=== PATIENT | male | born 1970 | race African-American/Black ===

== ENCOUNTER 2021-01-21 05:57 | Inpatient (IN) ==
[2021-01-16 12:20] LABS: Bilirubin,Urine Negative (Negative); Blood, Urine Negative (Negative); Glucose,Urine (UA) Negative (Negative); Ketones,Urine Negative (Negative); Nitrite,Urine Negative (Negative); Protein,Urine Negative; RBC,Urine <1 /HPF (0-4); Urine Appearance CLEAR (Clear); Urine Color Straw (Yellow); Urine Specific Gravity 1.009 (1.001-1.035); Urine Urobilinogen < 2.0 EU/DL (0.2-1.0); WBC,Urine <1 /HPF (0-6)
[2021-01-16 12:25] LABS: Basophils # 0.1 10*3/uL (0.0-0.2); Basophils % 0.7 % (0.0-0.8); Eosinophils # 0.3 10*3/uL (0.0-0.87); Eosinophils % 3.2 % (0.00-10.9); Hematocrit 40.1 VOL% (42.0-52.0); Hemoglobin 13.5 GM/DL (14.0-18.0); Immature Granulocytes % 0.6 %; Immature Granulocytes Absolute 0.06 #; Lymphocytes # 1.4 10*3/uL (1.4-4.0); Lymphocytes % 13.7 % (21.2-54.2); Mean Corpuscular HGB Conc 33.7 GM/DL (32-36); Mean Corpuscular Volume 89.3 FL (87-102); Mean Platelet Volume 10.4 FL (9.6-12.0); Monocytes % 8.4 % (1.7-12.7); Neutrophils % 73.4 % (38.7-73.9); Platelet Count 369 T/CUMM (130-400); Red Blood Count 4.49 MC/CUMM (3.8-5.5); Red Cell Distribution Width 14.2 % (9.3-17.3); White Blood Count 9.9 T/CUMM (4-12)
[2021-01-16 12:46] LABS: INR 0.9; PT Patient Result 9.6 SECS (9.8-11.9); Partial Thromboplastin Time 31.2 SECS (23.9-33.8)
[2021-01-16 13:05] LABS: Calcium 9.2 MG/DL (8.5-10.1); Osmolality,Calculated 273.8 MOS/KG (273-304); Potassium 4.3 MMOL/L (3.5-5.1)
[~2021-01-21 05:57] MED LIST: LACTATED RINGERS 1,000 ML IV SCH
[2021-01-21] MEDS ORDERED: ACETAMINOPHEN 500 MG TABLET PO ONE (06:00)
[2021-01-21] MEDS ORDERED: GABAPENTIN 400 MG CAPSULE PO ONE (06:00)
[2021-01-21] MEDS ORDERED: FAMOTIDINE 20 MG TABLET PO ONE (06:00)
[2021-01-21] MEDS ORDERED: BACITRACIN OINT 0.9 GM PACK TOP ONE (06:13)
[2021-01-21] MEDS ORDERED: propofoL 200 MG/20 ML VIAL IV ONE (06:24)
[2021-01-21] MEDS ORDERED: LIDOCAINE 2% 5 ML VIAL ONE (06:25)
[2021-01-21] MEDS ORDERED: ONDANSETRON 4 MG/2 ML VIAL ONE (06:25)
[2021-01-21] MEDS ORDERED: ETOMIDATE 40 MG/20 ML VIAL IV ONE (06:25)
[2021-01-21] MEDS ORDERED: PHENYLEPHRINE 10 MG/1 ML VIAL IV ONE (06:26)
[2021-01-21] MEDS ORDERED: VANCOMYCIN INJ 1,000 MG in SODIUM CHLORIDE 0.9% 250 ML IV ONE ×2 (06:30→17:00)
[2021-01-21] MEDS ORDERED: ceFAZolin 2,000 MG in PREMIX 1 EACH IV ONE (06:30)
[2021-01-21] MEDS ORDERED: ceFAZolin 1,000 MG in SYRINGE 1 EACH IV ONE (06:30)
[2021-01-21] MEDS ORDERED: MIDAZOLAM 2 MG/2 ML VIAL ONE (06:31)
[2021-01-21] MEDS ORDERED: fentaNYL 100 MCG/2 ML VIAL ONE (06:31)
[2021-01-21] MEDS ORDERED: ROPIVACAINE 0.5% 30 ML VIAL ONE (06:33)
[2021-01-21] MEDS ORDERED: DEXAMETHASONE 4 MG/1 ML VIAL ONE ×2 (06:33→07:47)
[2021-01-21] MEDS ORDERED: LIDOCAINE 1% 5 ML VIAL ONE (06:33)
[2021-01-21] MEDS ORDERED: BUPIVACAINE SPINAL 0.75% 2 ML AMP SPINAL ONE (06:40)
[2021-01-21 06:59] LABS: Alanine Aminotransferase 30 U/L (16-61); Albumin 3.6 G/DL (3.4-5.0); Alkaline Phosphatase 70 U/L (45-117); Aspartate Amino Transferase 30 U/L (0-37); Bilirubin,Total < 0.39 MG/DL (0.2-1.0); Blood Urea Nitrogen 13 MG/DL (7-18); Calcium 8.6 MG/DL (8.5-10.1); Carbon Dioxide 23 MMOL/L (21-32); Estimated Glom Filtration Rate 95 ML/MIN; Glucose 147 MG/DL (74-106); Osmolality,Calculated 275.8 MOS/KG (273-304); Potassium 3.7 MMOL/L (3.5-5.1); Sodium 137 MMOL/L (136-145); Total Protein 7.9 G/DL (6.4-8.2)
[2021-01-21] MEDS ORDERED: TRANEXAMIC ACID 1,000 MG/10 ML VIAL ONE (07:56)
[2021-01-21] MEDS ORDERED: SODIUM CHLORIDE 0.9% 250 ML IV ONE (08:46)
[2021-01-21] MEDS ORDERED: SODIUM CHLORIDE 0.9% 100 ML IV ONE (08:46)
[2021-01-21] MEDS ORDERED: KETAMINE 500 MG/10 ML VIAL ONE (08:54)
[2021-01-21] MEDS ORDERED: MELATONIN 3 MG TABLET PO PRN (09:20)
[2021-01-21] MEDS ORDERED: MAGNESIUM HYDROXIDE SUSP 30 ML UDCUP PO PRN (09:21)
[2021-01-21 09:59] LABS: Bacteria,Urine Occasional /HPF (Few); Bilirubin,Urine Negative (Negative); Blood, Urine Negative (Negative); Glucose,Urine (UA) Negative (Negative); Ketones,Urine Negative (Negative); Mucus,Urine Occasional /LPF (Occasional); Nitrite,Urine Negative (Negative); Protein,Urine Negative; RBC,Urine 1 /HPF (0-4); Squamous Epithelial Cell,Urine Occasional /HPF (0-10); Urine Appearance CLEAR (Clear); Urine Color Straw (Yellow); Urine Specific Gravity 1.004 (1.001-1.035); Urine Urobilinogen < 2.0 EU/DL (0.2-1.0)
[2021-01-21] MEDS ORDERED: ONDANSETRON 4 MG/2 ML VIAL IV PRN ×2 (10:30→12:21)
[2021-01-21] MEDS: KETOROLAC 30 MG/1 ML VIAL IV SCH ×3 (10:30→21:58)
[2021-01-21] MEDS ORDERED: MORPHINE 4 MG/1 ML VIAL IV PRN ×2 (10:30)
[2021-01-21] MEDS: HYDROmorphone 2 MG/1 ML VIAL IV PRN ×4 (11:50→12:40)
[2021-01-21] MEDS ORDERED: HYDROmorphone 2 MG/1 ML VIAL ONE (11:51)
[2021-01-21] MEDS ORDERED: MORPHINE 10 MG/1 ML VIAL ONE (13:34)
[2021-01-21] MEDS ORDERED: hydrALAZINE 20 MG/1 ML VIAL IV PRN (14:38)
[2021-01-21] MEDS: BACLOFEN 20 MG TABLET PO SCH ×2 (15:40→21:58)
[2021-01-21] MEDS: LACTATED RINGERS 1,000 ML IV SCH (16:50)
[2021-01-21] MEDS ORDERED: ceFAZolin 2,000 MG in PREMIX 1 EACH IV SCH (17:30)
[2021-01-21] MEDS ORDERED: AMITRIPTYLINE 50 MG TABLET PO PRN (21:00)
[2021-01-21] MEDS ORDERED: PRAZOSIN 1 MG CAPSULE PO SCH (21:00)
[2021-01-21] MEDS: DOCUSATE SODIUM 100 MG CAPSULE PO SCH (21:57)
[2021-01-22] MEDS: LACTATED RINGERS 1,000 ML IV SCH ×2 (04:18→08:27)
[2021-01-22] MEDS: KETOROLAC 30 MG/1 ML VIAL IV SCH (04:19)
[2021-01-22] MEDS ORDERED: ceFAZolin 2,000 MG in PREMIX 1 EACH IV SCH (05:00)
[2021-01-22] MEDS ORDERED: FONDAPARINUX 2.5 MG/0.5 ML SYRINGE SUBCUT SCH (05:00)
[2021-01-22 05:46] LABS: Basophils % 0.2 % (0.0-0.8); Eosinophils % 0.1 % (0.00-10.9); Hematocrit 30.3 VOL% (42.0-52.0); Hemoglobin 10.2 GM/DL (14.0-18.0); Immature Granulocytes % 0.6 %; Immature Granulocytes Absolute 0.06 #; Lymphocytes # 0.9 10*3/uL (1.4-4.0); Lymphocytes % 8.9 % (21.2-54.2); Mean Corpuscular HGB Conc 33.7 GM/DL (32-36); Mean Corpuscular Volume 88.6 FL (87-102); Mean Platelet Volume 10.2 FL (9.6-12.0); Monocytes % 10.6 % (1.7-12.7); Neutrophils % 79.6 % (38.7-73.9); Platelet Count 284 T/CUMM (130-400); Red Blood Count 3.42 MC/CUMM (3.8-5.5); Red Cell Distribution Width 14.2 % (9.3-17.3); White Blood Count 9.9 T/CUMM (4-12)
[2021-01-22] MEDS ORDERED: FOLIC ACID 1 MG TABLET PO SCH (09:00)
[2021-01-22] MEDS ORDERED: CHOLECALCIFEROL 1,000 UNIT TABLET PO SCH (09:00)
[2021-01-22] MEDS: DOCUSATE SODIUM 100 MG CAPSULE PO SCH (09:37)
[2021-01-22] MEDS: BACLOFEN 20 MG TABLET PO SCH (09:37)
[2021-01-22 11:13] VITALS: BP 129/70
[2021-01-22] MEDS ORDERED: ESCITALOPRAM 10 MG TABLET PO SCH (21:00)
== END 2021-01-22 14:50 | disposition home health service (06) | DRG 470 ==
LOC: N.OR 05:57 → N.SDSINP 06:00 → EDSTATUS 07:30 → N.SDSINP 09:21 → N.3E 13:57
PROVIDERS: ADMIT Orthopaedic Surgery; ATTEND Orthopaedic Surgery